=== PATIENT | female | born 1990 | race Caucasian/White ===

== ENCOUNTER → 2018-01-05 18:24 | Outpatient (CLI) | payer BC, SELFPAY ==
[2018-01-10 15:28] LABS: HPV Reflexed? NOT INDICATED
== END ==
PROVIDERS: Visit Provider Obstetrics & Gynecology
DX: Z12.4 Encounter for screening for malignant neoplasm of cervix (principal)
CPT/HCPCS: 88175; G0145

== ENCOUNTER → 2020-06-04 | Outpatient (CLI) | payer BC, SELFPAY ==
[2018-06-01 18:21] VITALS: BMI 28.8
[2020-06-07 16:15] LABS: HPV Reflexed? NOT INDICATED
== END | disposition home or self-care (01) ==
LOC: LABSPEC 06-05 08:26
PROVIDERS: PCP Nurse Practitioner; Visit Provider Student in an Organized Health Care Education/Training Program
DX: Z12.4 Encounter for screening for malignant neoplasm of cervix (principal)
CPT/HCPCS: 88175; G0145

== ENCOUNTER → 2022-07-15 | Outpatient (CLI) | payer OTHER, SELFPAY ==
--- NOTE | 2022-07-15 09:00 | BI_ITS ---
MAMMOGRAPHY - BILATERAL DIAGNOSTIC REASON FOR EXAM: Female, 32 years old. Pain in the upper-outer quadrant of the left breast. PERTINENT HISTORY: Non-contributory. TECHNIQUE: Digital bilateral breast amol (3D mammographic acquisition) in the CC and MLO projections. 2-D mediolateral oblique (MLO) and craniocaudad (CC) views of both breasts were obtained. CAD: Full Field Digital Mammography with Computer Added Detection was performed. COMPARISON: None. Baseline examination. FINDINGS: Breast Composition: The breasts are heterogeneously dense, which may obscure small masses. There are no dominant masses or suspicious calcifications. No other significant abnormalities are identified. BI/DIAG MAMM W/CAD, BILAT IMPRESSION: Negative diagnostic mammogram. With the patient''s history of pain in the upper-outer quadrant of the left breast, correlation with ultrasound is recommended. ASSESSMENT CATEGORY: BIRADS Category 1: Negative. A letter regarding these results will be sent to the patient by the facility within 30 days. Approximately 10% of breast cancers are not detected by mammography. A normal mammogram should not delay biopsy of a clinically suspicious abnormality. Electronically Signed: Dony Agrawal MD at 12:40 EST ,
--- NOTE | 2022-07-15 09:00 | US_ITS ---
STUDY: ULTRASOUND BREAST - LEFT REASON FOR EXAM: Female, 32 years old. Pain in the upper-outer quadrant of left breast. TECHNIQUE: Axial and longitudinal images of the LEFT breast were performed with a high resolution ultrasound transducer. # OF IMAGES: 59 COMPARISON: Comparison is made with prior mammogram done earlier today. FINDINGS: LEFT Breast: 3 cysts are seen in the upper outer quadrant of the left breast. The largest cyst measures 6 mm x 7 mm x 4 mm. This is at the 3 o''clock position of the breast at 3 cm from the nipple. A septated cyst measuring 8mm by 8 mm x 4 mm is seen at the 1 o''clock position of the breast at 4 cm from the nipple. US/Breast Limited Unilateral IMPRESSION: Several subcentimeter cysts are seen in the upper outer quadrant of the left breast. ASSESSMENT CATEGORY: BIRADS Category 2: Benign. A letter regarding these results will be sent to the patient by the facility within 30 days. Electronically Signed: Dony Agrawal MD at 15:40 EST ,
== END | disposition home or self-care (01) ==
PROVIDERS: PCP Nurse Practitioner; Visit Provider Student in an Organized Health Care Education/Training Program
DX: N64.4 Mastodynia (principal)
CPT/HCPCS: 76642; 77062; 77066; G0279